=== PATIENT | female | born 1950 | race Caucasian/White ===

== ENCOUNTER 2017-10-15 11:31 | Outpatient (CLI) | payer OTHER ==
[~2017-10-15 11:31] MED LIST: CATAFLAM50 MG; IRON1 TA1; NABUMETONE500 MG PO; NEURONTIN300 MG; NORFLEX100 MG; PERCOCET 5/3251 TAB PO; PRILOSEC20 MG; TRAMADOL HCL50 MG
== END 2017-10-15 11:42 | disposition home or self-care (01) ==
LOC: RAD 11:31
DX: Z01.810 Encounter for preprocedural cardiovascular examination (principal); J44.9 Chronic obstructive pulmonary disease, unspecified

== ENCOUNTER 2017-10-20 09:27 | Day surgery (SDC) | payer OTHER | END 2017-10-20 21:45 | disposition home or self-care (01) | LOC: CIR.AMB 09:27 | DX: S52.532A Colles' fracture of left radius, initial encounter for closed fracture (principal) ==

== ENCOUNTER 2018-06-24 14:54 | Outpatient (CLI) | payer OTHER | END 2018-06-24 15:11 | disposition home or self-care (01) | LOC: RAD 501 14:54 | DX: M54.2 Cervicalgia (principal); M54.16 Radiculopathy, lumbar region; M54.5 Low back pain ==

== ENCOUNTER 2018-11-05 10:25 | Outpatient (CLI) | payer OTHER | END 2018-11-05 10:30 | disposition home or self-care (01) | LOC: MAMO-SONO 10:25 | DX: N60.11 Diffuse cystic mastopathy of right breast (principal); N60.12 Diffuse cystic mastopathy of left breast; Z12.31 Encounter for screening mammogram for malignant neoplasm of breast ==

== ENCOUNTER → 2018-11-05 | Outpatient (CLI) | payer OTHER | END | disposition home or self-care (01) | LOC: NUCLEAR 11:00 | DX: M81.0 Age-related osteoporosis without current pathological fracture (principal); M85.88 Other specified disorders of bone density and structure, other site ==

== ENCOUNTER 2019-11-15 09:41 | Outpatient (CLI) | payer OTHER | END 2019-11-15 09:50 | disposition home or self-care (01) | LOC: MAMO-SONO 09:41 | PROVIDERS: ATTEND Internal Medicine Cardiovascular Disease | DX: Z12.31 Encounter for screening mammogram for malignant neoplasm of breast (principal); Z87.898 Personal history of other specified conditions; N60.11 Diffuse cystic mastopathy of right breast; N60.12 Diffuse cystic mastopathy of left breast ==

== ENCOUNTER 2020-03-26 20:08 | Emergency (ER) | payer OTHER ==
[~2020-03-26] VITALS: Ht 172.7 cm; Wt 68.0 kg
[2020-03-26] MEDS ORDERED: MELOXICAM7.5 MG (20:39)
[2020-03-26] MEDS ORDERED: ZOCOR40 MG (20:41)
[2020-03-26] MEDS ORDERED: COZAAR100 MG (20:42)
[2020-03-26] MEDS ORDERED: CALCIUM MAGNES1 EACH (20:42)
[2020-03-26] MEDS ORDERED: BIOTIN1 M1 (20:43)
[2020-03-26] MEDS ORDERED: OSTERA TABLET1 EACH (20:43)
[2020-03-26] MEDS ORDERED: ESTAZOLAM2 MG (20:44)
== END 2020-03-27 00:28 | disposition home or self-care (01) ==
LOC: ER 20:08
DX: G89.29 Other chronic pain (principal); M54.5 Low back pain; M54.2 Cervicalgia

== ENCOUNTER 2020-12-12 09:39 | Outpatient (CLI) | payer OTHER ==
[~2020-12-12 09:39] MED LIST changes: +BIOTIN1 M1; +CALCIUM MAGNES1 EACH; +COZAAR100 MG; +ESTAZOLAM2 MG; +MELOXICAM7.5 MG; +OSTERA TABLET1 EACH; +ZOCOR40 MG
== END 2020-12-12 09:46 | disposition home or self-care (01) ==
LOC: MAMO-SONO 09:39
PROVIDERS: ATTEND Obstetrics & Gynecology Obstetrics
DX: N64.4 Mastodynia (principal); Z12.31 Encounter for screening mammogram for malignant neoplasm of breast

== ENCOUNTER 2021-02-15 14:06 | Outpatient (CLI) | payer OTHER | END 2021-02-15 14:09 | disposition home or self-care (01) | LOC: NUCLEAR 14:06 | PROVIDERS: ATTEND Internal Medicine Rheumatology | DX: M81.0 Age-related osteoporosis without current pathological fracture (principal); M85.88 Other specified disorders of bone density and structure, other site; Z87.310 Personal history of (healed) osteoporosis fracture ==

== ENCOUNTER 2021-12-24 14:43 | Outpatient (CLI) | payer OTHER | END 2021-12-24 14:49 | disposition home or self-care (01) | LOC: MAMO-SONO 14:43 | PROVIDERS: ATTEND Family Medicine Geriatric Medicine | DX: Z12.31 Encounter for screening mammogram for malignant neoplasm of breast (principal); N64.4 Mastodynia ==

== ENCOUNTER 2023-02-23 13:25 | Outpatient (CLI) | payer OTHER | END 2023-02-23 13:33 | disposition home or self-care (01) | LOC: MAMO-SONO 13:25 | PROVIDERS: ATTEND Family Medicine Geriatric Medicine | DX: M25.50 Pain in unspecified joint (principal); Z12.31 Encounter for screening mammogram for malignant neoplasm of breast ==

== ENCOUNTER 2023-02-23 14:39 | Outpatient (CLI) | payer OTHER | END 2023-02-23 14:41 | disposition home or self-care (01) | LOC: NUCLEAR 14:39 | DX: M81.0 Age-related osteoporosis without current pathological fracture (principal) ==

== ENCOUNTER 2024-03-02 13:28 | Outpatient (CLI) | payer OTHER | END 2024-03-02 13:38 | disposition home or self-care (01) | LOC: MAMO-SONO 13:28 | PROVIDERS: ATTEND Family Medicine Geriatric Medicine | DX: N64.4 Mastodynia (principal); Z12.31 Encounter for screening mammogram for malignant neoplasm of breast ==

== ENCOUNTER 2025-03-09 13:36 | Outpatient (CLI) | payer OTHER | END 2025-03-09 13:48 | disposition home or self-care (01) | LOC: MAMO-SONO 13:36 | PROVIDERS: ATTEND Family Medicine Geriatric Medicine | DX: M85.9 Disorder of bone density and structure, unspecified (principal); Z12.31 Encounter for screening mammogram for malignant neoplasm of breast ==